=== PATIENT | male | born 1965 | race Two or more races ===

== ENCOUNTER 2020-05-29 13:28 | Inpatient (IN) | payer OTHER ==
[2020-05-29 16:36] VITALS: BMI 29.1
[2020-05-29] MEDS ORDERED: METHOCARBAMOL 500 MG TABLET PO PRN (18:04)
[2020-05-29] MEDS ORDERED: MAG HYDROX/AL HYDROX/SIMETH 30 ML UNIT-DOSE CUP PO PRN (18:04)
[2020-05-29] MEDS ORDERED: MAGNESIUM HYDROX 2400MG/30ML ORAL SUSPENSION 30 ML CUP PO PRN (18:04)
[2020-05-29] MEDS ORDERED: ONDANSETRON *ODT* 4 MG TABLET SL PRN (18:04)
[2020-05-29] MEDS ORDERED: BISMUTH SUBSALICYLATE 524 MG/30 ML UD PO PRN (18:04)
[2020-05-29] MEDS ORDERED: MAGNESIUM CITRATE 300 ML BOTTLE PO PRN (18:04)
[2020-05-29] MEDS ORDERED: MENTHOL/PHENOL 1 EACH UD MM PRN (18:04)
[2020-05-29] MEDS ORDERED: ACETAMINOPHEN 325 MG TABLET (FP) PO PRN ×2 (18:04)
[2020-05-29] MEDS ORDERED: chlordiazePOXIDE HCL 25 MG CAPSULE PO PRN (18:05)
[2020-05-29] MEDS ORDERED: chlordiazePOXIDE HCL 25 MG CAPSULE PO ONE (18:15)
[2020-05-29] MEDS: IBUPROFEN 400 MG TABLET (FP) PO PRN (19:00)
[2020-05-29] MEDS: hydrOXYzine PAMOATE 25 MG CAPSULE (FP) PO PRN (19:00)
[2020-05-29] MEDS: THIAMINE HCL 100 MG TABLET (FP) PO SCH (22:54)
[2020-05-29] MEDS: traZODone HCL 50 MG TABLET (FP) PO PRN (22:54)
[2020-05-29] MEDS: chlordiazePOXIDE HCL 25 MG CAPSULE PO SCH (22:54)
[2020-05-29] MEDS: MELATONIN 5 MG TABLETS PO SCH (22:55)
[2020-05-30] MEDS: chlordiazePOXIDE HCL 25 MG CAPSULE PO SCH ×4 (05:36→22:54)
[2020-05-30] MEDS: IBUPROFEN 400 MG TABLET (FP) PO PRN ×2 (05:36→18:44)
[2020-05-30 10:47] LABS: HEMATOCRIT 40.2 % (35.4-49); HEMOGLOBIN 13.9 GM/dL (11.7-16.9); MCH 31.9 pg (25.7-33.7); MCHC 34.5 g/dl (32.0-35.9); MEAN CELL VOLUME 92.5 fl (80-96); MEAN PLT VOLUME 9.4 fl (7.5-11.1); PLATELET COUNT 193 K/MM3 (134-434); RBC 4.34 M/mm3 (4.00-5.60); RDW 13.4 % (11.9-15.9); WHITE BLOOD COUNT 2.8 K/mm3 (4.0-10.0)
[2020-05-30] MEDS: PRENATAL VITAMINS W/ FOLIC ACID TABLET (FP) PO SCH (11:04)
[2020-05-30 11:23] LABS: POTASSIUM 3.8 mmol/L (3.5-5.1)
[2020-05-30 11:27] LABS: ALBUMIN 3.3 g/dl (3.4-5.0); BLOOD UREA NITROGEN 25.6 mg/dL (7-18)
[2020-05-30 11:29] LABS: CALCIUM 8.9 mg/dL (8.5-10.1); CREATININE 1.4 mg/dL (0.55-1.3)
[2020-05-30 11:31] LABS: BILIRUBIN,TOTAL 0.4 mg/dL (0.2-1); TOT PROT 6.3 g/dl (6.4-8.2)
[2020-05-30] MEDS: MELATONIN 5 MG TABLETS PO SCH (22:53)
[2020-05-30] MEDS: traZODone HCL 50 MG TABLET (FP) PO PRN (22:53)
[2020-05-30] MEDS: THIAMINE HCL 100 MG TABLET (FP) PO SCH (22:54)
[2020-05-31] MEDS ORDERED: chlordiazePOXIDE HCL 25 MG CAPSULE PO SCH ×2 (05:00→05:15)
[2020-05-31] MEDS ORDERED: MASKS NR ONE (06:09)
[2020-05-31] MEDS: IBUPROFEN 400 MG TABLET (FP) PO PRN ×2 (06:14→22:14)
[2020-05-31] MEDS: chlordiazePOXIDE HCL 10 MG CAPSULE PO SCH ×4 (06:16→22:17)
[2020-05-31] MEDS: PRENATAL VITAMINS W/ FOLIC ACID TABLET (FP) PO SCH (10:27)
[2020-05-31] MEDS: MELATONIN 5 MG TABLETS PO SCH (22:13)
[2020-05-31] MEDS: THIAMINE HCL 100 MG TABLET (FP) PO SCH (22:14)
[2020-05-31] MEDS: hydrOXYzine PAMOATE 25 MG CAPSULE (FP) PO PRN (22:15)
[2020-06-01] MEDS ORDERED: chlordiazePOXIDE HCL 10 MG CAPSULE PO PRN
[2020-06-01] MEDS: IBUPROFEN 400 MG TABLET (FP) PO PRN (05:44)
[2020-06-01] MEDS: chlordiazePOXIDE HCL 10 MG CAPSULE PO SCH ×2 (05:47→17:49)
[2020-06-01] MEDS: PRENATAL VITAMINS W/ FOLIC ACID TABLET (FP) PO SCH (10:23)
[2020-06-01 13:07] LABS: CALCIUM 9.3 mg/dL (8.5-10.1)
[2020-06-01 13:12] LABS: CREATININE 1.2 mg/dL (0.55-1.3)
[2020-06-01 21:42] VITALS: BP 143/99; PULSE 77; TEMP 97.7
[2020-06-02] MEDS ORDERED: chlordiazePOXIDE HCL 10 MG CAPSULE PO ONE (05:00)
== END 2020-06-01 21:56 | disposition left against medical advice (07) | DRG 770 ==
LOC: YASAS 13:28 → Y3N 16:35
PROVIDERS: ADMIT Allergy & Immunology; ATTEND Allergy & Immunology
PROC: HZ2ZZZZ Detoxification Services for Substance Abuse Treatment (ICD-10-PCS; principal; 2020-05-29)
DX: F10.230 Alcohol dependence with withdrawal, uncomplicated (principal); F14.20 Cocaine dependence, uncomplicated; F12.20 Cannabis dependence, uncomplicated; R79.89 Other specified abnormal findings of blood chemistry; Z91.018 Allergy to other foods; Z59.0 Homelessness
CPT/HCPCS: 36415; 80048; 80053; 85027; 86780; 93005; 93010; C9803; U0003

== ENCOUNTER 2020-08-22 09:26 | Inpatient (IN) | payer OTHER ==
[2020-08-22 10:10] VITALS: BMI 29.9
[2020-08-22] MEDS ORDERED: MAGNESIUM CITRATE 300 ML BOTTLE PO PRN (11:08)
[2020-08-22] MEDS ORDERED: ACETAMINOPHEN 325 MG TABLET (FP) PO PRN ×2 (11:08)
[2020-08-22] MEDS ORDERED: ONDANSETRON *ODT* 4 MG TABLET SL PRN (11:08)
[2020-08-22] MEDS ORDERED: MAG HYDROX/AL HYDROX/SIMETH 30 ML UNIT-DOSE CUP PO PRN (11:08)
[2020-08-22] MEDS ORDERED: LORazepam 1 MG TABLET PO PRN (11:08)
[2020-08-22] MEDS ORDERED: BISMUTH SUBSALICYLATE 524 MG/30 ML PO PRN (11:08)
[2020-08-22] MEDS ORDERED: MAGNESIUM HYDROX 2400MG/30ML ORAL SUSPENSION 30 ML CUP PO PRN (11:08)
[2020-08-22] MEDS: METHOCARBAMOL 500 MG TABLET PO PRN (12:48)
[2020-08-22] MEDS: IBUPROFEN 400 MG TABLET (FP) PO PRN (12:50)
[2020-08-22] MEDS ORDERED: MASKS NR ONE (12:52)
[2020-08-22] MEDS: hydrOXYzine PAMOATE 25 MG CAPSULE (FP) PO SCH ×2 (13:34→17:28)
[2020-08-22] MEDS: LORazepam 2 MG TABLET PO SCH (17:28)
[2020-08-22] MEDS: ALBUTEROL SO4 HFA INHALER IH PRN (17:28)
[2020-08-23] MEDS: MELATONIN 5 MG TABLETS PO SCH ×2 (00:02→22:09)
[2020-08-23] MEDS: THIAMINE HCL 100 MG TABLET (FP) PO SCH ×2 (00:02→22:09)
[2020-08-23] MEDS: hydrOXYzine PAMOATE 25 MG CAPSULE (FP) PO SCH ×6 (00:02→22:09)
[2020-08-23] MEDS: LORazepam 2 MG TABLET PO SCH ×5 (00:02→22:08)
[2020-08-23] MEDS: METHOCARBAMOL 500 MG TABLET PO PRN (05:37)
[2020-08-23] MEDS: MENTHOL/PHENOL 1 EACH UD MM PRN (05:38)
[2020-08-23] MEDS: PRENATAL VITAMINS W/ FOLIC ACID TABLET (FP) PO SCH (10:25)
[2020-08-23] MEDS: IBUPROFEN 400 MG TABLET (FP) PO PRN (10:27)
[2020-08-24] MEDS: hydrOXYzine PAMOATE 25 MG CAPSULE (FP) PO SCH ×5 (05:46→22:31)
[2020-08-24] MEDS: LORazepam 1 MG TABLET PO SCH ×4 (05:46→22:31)
[2020-08-24] MEDS: PRENATAL VITAMINS W/ FOLIC ACID TABLET (FP) PO SCH (10:09)
[2020-08-24] MEDS: MENTHOL/PHENOL 1 EACH UD MM PRN ×2 (10:12→18:18)
[2020-08-24 15:05] LABS: HEMATOCRIT 42.3 % (35.4-49); HEMOGLOBIN 14.4 GM/dL (11.7-16.9); MCH 31.3 pg (25.7-33.7); MCHC 34.2 g/dl (32.0-35.9); MEAN CELL VOLUME 91.6 fl (80-96); MEAN PLT VOLUME 8.8 fl (7.5-11.1); PLATELET COUNT 212 K/MM3 (134-434); RBC 4.62 M/mm3 (4.00-5.60); RDW 13.4 % (11.9-15.9); WHITE BLOOD COUNT 3.5 K/mm3 (4.0-10.0)
[2020-08-24 15:08] LABS: ALBUMIN 3.3 g/dl (3.4-5.0); BLOOD UREA NITROGEN 19.6 mg/dL (7-18); CALCIUM 9.2 mg/dL (8.5-10.1)
[2020-08-24 15:12] LABS: BILIRUBIN,TOTAL 0.3 mg/dL (0.2-1); TOT PROT 6.6 g/dl (6.4-8.2)
[2020-08-24] MEDS: MELATONIN 5 MG TABLETS PO SCH (22:31)
[2020-08-24] MEDS: THIAMINE HCL 100 MG TABLET (FP) PO SCH (22:31)
[2020-08-25] MEDS ORDERED: LORazepam 0.5 MG TABLET PO PRN
[2020-08-25] MEDS: hydrOXYzine PAMOATE 25 MG CAPSULE (FP) PO SCH ×5 (05:11→22:12)
[2020-08-25] MEDS: LORazepam 0.5 MG TABLET PO SCH ×4 (05:11→22:12)
[2020-08-25] MEDS: IBUPROFEN 400 MG TABLET (FP) PO PRN ×2 (05:13→13:18)
[2020-08-25] MEDS: ALBUTEROL SO4 HFA INHALER IH PRN (05:13)
[2020-08-25] MEDS: PRENATAL VITAMINS W/ FOLIC ACID TABLET (FP) PO SCH (10:13)
[2020-08-25] MEDS: MELATONIN 5 MG TABLETS PO SCH (22:12)
[2020-08-25] MEDS: THIAMINE HCL 100 MG TABLET (FP) PO SCH (22:12)
[2020-08-26] MEDS ORDERED: LORazepam 0.5 MG TABLET PO ONE (05:00)
[2020-08-26] MEDS: ALBUTEROL SO4 HFA INHALER IH PRN (05:39)
[2020-08-26] MEDS: hydrOXYzine PAMOATE 25 MG CAPSULE (FP) PO SCH (05:39)
[2020-08-26 09:29] VITALS: BP 145/85; PULSE 83; TEMP 98.1
== END 2020-08-26 09:40 | disposition other institution (70) | DRG 774 ==
LOC: YASAS 09:26 → Y6N 11:03
PROVIDERS: ADMIT Allergy & Immunology; ATTEND Allergy & Immunology
PROC: HZ2ZZZZ Detoxification Services for Substance Abuse Treatment (ICD-10-PCS; principal; 2020-08-22)
DX: F10.230 Alcohol dependence with withdrawal, uncomplicated (principal); F14.20 Cocaine dependence, uncomplicated; F12.20 Cannabis dependence, uncomplicated; F17.210 Nicotine dependence, cigarettes, uncomplicated; F51.05 Insomnia due to other mental disorder; J45.909 Unspecified asthma, uncomplicated; Z56.0 Unemployment, unspecified; Z59.0 Homelessness
CPT/HCPCS: 36415; 80053; 85027; 86780; C9803; U0003; U0005

== ENCOUNTER 2023-03-13 11:26 | Inpatient (IN) | payer OTHER ==
[2023-03-13 11:55] VITALS: BMI 27.5
[2023-03-13] MEDS ORDERED: BISMUTH SUBSALICYLATE 262 MG/15 ML BTL PO PRN (12:15)
[2023-03-13] MEDS ORDERED: hydrOXYzine PAMOATE 25 MG CAPSULE (FP) PO PRN (12:15)
[2023-03-13] MEDS ORDERED: LOPERAMIDE HCL 2 MG CAPSULE PO PRN (12:15)
[2023-03-13] MEDS ORDERED: IBUPROFEN 600 MG TABLET (FP) PO PRN (12:15)
[2023-03-13] MEDS ORDERED: P-EPHED 60MG/TRIPROLIDI 2.5MG TABLET PO PRN (12:15)
[2023-03-13] MEDS ORDERED: MAG HYDROX/AL HYDROX/SIMETH 30 ML UNIT-DOSE CUP PO PRN (12:15)
[2023-03-13] MEDS ORDERED: ONDANSETRON *ODT* 4 MG TABLET SL PRN (12:15)
[2023-03-13] MEDS ORDERED: POLYETHYLENE GLYCOL (HEALTHYLAX) 3350 17 GM PACKET PO PRN (12:15)
[2023-03-13] MEDS ORDERED: BENZONATATE 200 MG CAPSULE PO PRN (12:15)
[2023-03-13] MEDS ORDERED: MAGNESIUM HYDROX 2400MG/30ML ORAL SUSPENSION 30 ML CUP PO PRN (12:15)
[2023-03-13] MEDS ORDERED: DICYCLOMINE HCL 10 MG CAPSULE PO PRN (12:15)
[2023-03-13] MEDS: ALBUTEROL SO4 2.5/IPRATROPIUM 0.5 INH SOL 3 ML VIAL.NEB. NEB ONE (13:11)
[2023-03-13] MEDS: traZODone HCL 50 MG TABLET (FP) PO SCH (22:09)
[2023-03-13] MEDS: MELATONIN 5 MG TABLETS PO SCH (22:09)
[2023-03-13] MEDS: METHOCARBAMOL 500 MG TABLET PO PRN (22:09)
[2023-03-13] MEDS: THIAMINE HCL 100 MG TABLET (FP) PO SCH (22:09)
[2023-03-13] MEDS: guaiFENesin 600 MG TABLET.ER (FP) PO PRN (22:10)
[2023-03-14] MEDS: PRENATAL VITAMINS W/ FOLIC ACID TABLET (FP) PO SCH (10:13)
[2023-03-14] MEDS: ALBUTEROL SO4 HFA INHALER IH PRN (10:13)
[2023-03-14] MEDS ORDERED: chlordiazePOXIDE HCL 25 MG CAPSULE PO PRN (10:19)
[2023-03-14] MEDS ORDERED: ALBUTEROL SO4 HFA INHALER IH PRN (10:24)
[2023-03-14] MEDS: chlordiazePOXIDE HCL 25 MG CAPSULE PO SCH (10:41)
[2023-03-14 10:44] LABS: HEMATOCRIT 37.7 % (35.4-49); HEMOGLOBIN 12.5 GM/dL (11.7-16.9); MCH 30.8 pg (25.7-33.7); MCHC 33.3 g/dl (32.0-35.9); MEAN CELL VOLUME 92.6 fl (80-96); MEAN PLT VOLUME 7.8 fl (7.5-11.1); PLATELET COUNT 257 10^3/uL (134-434); RBC 4.07 M/mm3 (4.00-5.60); RDW 13.5 % (11.9-15.9); WHITE BLOOD COUNT 3.3 K/mm3 (4.0-10.0)
[2023-03-14 10:50] LABS: CHLORIDE 109 mmol/L (98-107); POTASSIUM 3.9 mmol/L (3.5-5.1); SODIUM 141 mmol/L (136-145)
[2023-03-14 10:52] LABS: ALBUMIN 3.1 g/dl (3.4-5.0); ANION GAP 4 mmol/L (4-13); BLOOD UREA NITROGEN 26.2 mg/dL (7-18); CALCIUM 8.7 mg/dL (8.5-10.1); CO2 27 mmol/L (21-32); GLUCOSE,RANDOM 84 mg/dL (74-106)
[2023-03-14 10:55] LABS: SGPT/ALT 44 U/L (13-61)
[2023-03-14 10:56] LABS: SGOT/AST 23 U/L (15-37)
[2023-03-14 10:57] LABS: BILIRUBIN,TOTAL 0.6 mg/dL (0.2-1); TOT PROT 6.2 g/dl (6.4-8.2)
[2023-03-14 10:58] LABS: ALK PHOS 92 U/L (45-117)
[2023-03-14] MEDS ORDERED: ALBUTEROL SO4 2.5/IPRATROPIUM 0.5 INH SOL 3 ML VIAL.NEB. NEB PRN (15:22)
[2023-03-14] MEDS: ACETAMINOPHEN 325 MG TABLET (FP) PO PRN (22:20)
[2023-03-14] MEDS: BENZOCAINE/MENTHOL (CHLORASEPTIC ) LOZENGE MM PRN (22:21)
[2023-03-15] MEDS: IBUPROFEN 400 MG TABLET (FP) PO PRN (22:45)
[2023-03-16] MEDS: chlordiazePOXIDE HCL 25 MG CAPSULE PO SCH (05:55)
[2023-03-16 21:04] VITALS: RESP 18
[2023-03-17] MEDS ORDERED: chlordiazePOXIDE HCL 10 MG CAPSULE PO PRN
[2023-03-17] MEDS: chlordiazePOXIDE HCL 10 MG CAPSULE PO SCH (05:10)
[2023-03-17 08:43] VITALS: BP 116/73; PULSE 79; TEMP 97.1
[2023-03-18] MEDS ORDERED: chlordiazePOXIDE HCL 10 MG CAPSULE PO SCH (05:00)
[2023-03-19] MEDS ORDERED: chlordiazePOXIDE HCL 10 MG CAPSULE PO ONE (05:00)
== END 2023-03-17 11:41 | disposition home or self-care (01) | DRG 774 ==
LOC: YASAS 11:26 → Y3N 12:27 → Y6N 03-15 13:07 → Y3N 03-16 06:15
PROVIDERS: ADMIT Allergy & Immunology; ATTEND Surgery
PROC: HZ2ZZZZ Detoxification Services for Substance Abuse Treatment (ICD-10-PCS; principal; 2023-03-13)
DX: F10.230 Alcohol dependence with withdrawal, uncomplicated (principal); F14.20 Cocaine dependence, uncomplicated; F12.20 Cannabis dependence, uncomplicated; J45.909 Unspecified asthma, uncomplicated
CPT/HCPCS: 0241U-QW; 36415; 80053; 80307; 85027; 86780; 87635; 87811; 94640

== ENCOUNTER 2023-07-09 11:30 | Inpatient (IN) | payer OTHER ==
[2023-07-09 12:09] VITALS: BMI 28.4
[2023-07-09] MEDS ORDERED: MAGNESIUM HYDROX 2400MG/30ML ORAL SUSPENSION 30 ML CUP PO PRN (15:36)
[2023-07-09] MEDS ORDERED: DICYCLOMINE HCL 10 MG CAPSULE PO PRN (15:36)
[2023-07-09] MEDS ORDERED: MAG HYDROX/AL HYDROX/SIMETH 30 ML UNIT-DOSE CUP PO PRN (15:36)
[2023-07-09] MEDS ORDERED: ACETAMINOPHEN 325 MG TABLET (FP) PO PRN (15:36)
[2023-07-09] MEDS ORDERED: NALOXONE HCL 0.4 MG/ML VIAL IM PRN (15:36)
[2023-07-09] MEDS ORDERED: guaiFENesin 600 MG TABLET.ER (FP) PO PRN (15:36)
[2023-07-09] MEDS ORDERED: BENZOCAINE/MENTHOL (CHLORASEPTIC ) LOZENGE MM PRN (15:36)
[2023-07-09] MEDS ORDERED: BENZONATATE 200 MG CAPSULE PO PRN (15:36)
[2023-07-09] MEDS ORDERED: LOPERAMIDE HCL 2 MG CAPSULE PO PRN (15:36)
[2023-07-09] MEDS ORDERED: ONDANSETRON *ODT* 4 MG TABLET SL PRN (15:36)
[2023-07-09] MEDS ORDERED: chlordiazePOXIDE HCL 25 MG CAPSULE PO PRN (15:36)
[2023-07-09] MEDS ORDERED: NALOXONE HCL (KLOXXADO) 8 MG SPRAY NS PRN (15:36)
[2023-07-09] MEDS ORDERED: BISMUTH SUBSALICYLATE 524 MG/30 ML PO PRN (15:36)
[2023-07-09] MEDS ORDERED: POLYETHYLENE GLYCOL (HEALTHYLAX) 3350 17 GM PACKET PO PRN (15:36)
[2023-07-09] MEDS ORDERED: IBUPROFEN 400 MG TABLET (FP) PO PRN (15:36)
[2023-07-09] MEDS: chlordiazePOXIDE HCL 25 MG CAPSULE PO SCH (17:30)
[2023-07-09] MEDS: MELATONIN 5 MG TABLETS PO SCH (22:55)
[2023-07-09] MEDS: THIAMINE 100 MG TABLET PO SCH (22:55)
[2023-07-09] MEDS: IBUPROFEN 600 MG TABLET (FP) PO PRN (22:56)
[2023-07-09] MEDS: METHOCARBAMOL 500 MG TABLET PO PRN (22:58)
[2023-07-10] MEDS: ALBUTEROL SO4 HFA INHALER IH PRN (05:42)
[2023-07-10] MEDS: PRENATAL VITAMINS W/ FOLIC ACID TABLET (FP) PO SCH (10:37)
[2023-07-10 11:49] LABS: HEMOGLOBIN 13.8 GM/dL (11.7-16.9); MCH 29.8 pg (25.7-33.7); MEAN CELL VOLUME 90.5 fl (80-96); PLATELET COUNT 181 10^3/uL (134-434); RBC 4.64 M/mm3 (4.00-5.60); RDW 14.1 % (11.9-15.9); WHITE BLOOD COUNT 2.3 K/mm3 (4.0-10.0)
[2023-07-10 11:52] LABS: CHLORIDE 111 mmol/L (98-107); SODIUM 143 mmol/L (136-145)
[2023-07-10 12:00] LABS: ALBUMIN 3.5 g/dl (3.4-5.0); ANION GAP 3 mmol/L (4-13); BLOOD UREA NITROGEN 37.4 mg/dL (7-18); CALCIUM 9.2 mg/dL (8.5-10.1); CO2 29 mmol/L (21-32); GLUCOSE,RANDOM 102 mg/dL (74-106)
[2023-07-10 12:02] LABS: BILIRUBIN,TOTAL 0.6 mg/dL (0.2-1)
[2023-07-10 12:03] LABS: CREATININE 1.4 mg/dL (0.55-1.3); SGOT/AST 31 U/L (15-37)
[2023-07-10 12:04] LABS: TOT PROT 6.6 g/dl (6.4-8.2)
[2023-07-10 12:06] LABS: ALK PHOS 77 U/L (45-117)
[2023-07-10 12:11] LABS: SGPT/ALT 31 U/L (13-61)
[2023-07-10] MEDS: hydrOXYzine PAMOATE 25 MG CAPSULE (FP) PO PRN (22:30)
[2023-07-11] MEDS: chlordiazePOXIDE HCL 25 MG CAPSULE PO SCH (05:45)
[2023-07-12] MEDS ORDERED: chlordiazePOXIDE HCL 10 MG CAPSULE PO PRN
[2023-07-12] MEDS: chlordiazePOXIDE HCL 10 MG CAPSULE PO SCH (05:45)
[2023-07-13] MEDS: chlordiazePOXIDE HCL 10 MG CAPSULE PO SCH (05:27)
[2023-07-13 10:18] VITALS: PULSE 80; RESP 20; TEMP 98.8
[2023-07-13 10:20] VITALS: BP 152/104
[2023-07-13] MEDS: amLODIPine BESYLATE 10 MG TABLET (FP) PO SCH (10:34)
[2023-07-14] MEDS ORDERED: chlordiazePOXIDE HCL 10 MG CAPSULE PO ONE (05:00)
== END 2023-07-13 12:52 | disposition other institution (70) | DRG 774 ==
LOC: YASAS 11:30 → Y3N 14:59
PROVIDERS: ADMIT Allergy & Immunology; ATTEND Surgery
PROC: HZ2ZZZZ Detoxification Services for Substance Abuse Treatment (ICD-10-PCS; principal; 2023-07-09)
DX: F10.230 Alcohol dependence with withdrawal, uncomplicated (principal); F14.20 Cocaine dependence, uncomplicated; F12.20 Cannabis dependence, uncomplicated; F17.210 Nicotine dependence, cigarettes, uncomplicated; F51.05 Insomnia due to other mental disorder; Z87.09 Personal history of other diseases of the respiratory system
CPT/HCPCS: 36415; 80053; 80307; 82140; 85027; 86780; 87811; 93005; 93010

== ENCOUNTER 2023-07-13 13:01 | Inpatient (IN) | payer OTHER ==
[2023-07-13] MEDS ORDERED: POLYETHYLENE GLYCOL (HEALTHYLAX) 3350 17 GM PACKET PO PRN (15:41)
[2023-07-13] MEDS ORDERED: BENZOCAINE/MENTHOL (CHLORASEPTIC ) LOZENGE MM PRN (15:41)
[2023-07-13] MEDS ORDERED: NALOXONE HCL 0.4 MG/ML VIAL IVPUSH PRN (15:41)
[2023-07-13] MEDS ORDERED: NALOXONE (NYS OPIOID OVERDOSE PROGRAM) 4 MG/0.1 ML SPRAY NS PRN (15:41)
[2023-07-13] MEDS ORDERED: BENZONATATE 200 MG CAPSULE PO PRN (15:41)
[2023-07-13] MEDS ORDERED: AMMONIUM LACTATE 12% LOTION 225 GM BOTTLE TP PRN (15:41)
[2023-07-13] MEDS ORDERED: LOPERAMIDE HCL 2 MG CAPSULE PO PRN (15:41)
[2023-07-13] MEDS ORDERED: NICOTINE POLACRILEX 4 MG LOZENGE BC PRN (15:41)
[2023-07-13] MEDS ORDERED: MAGNESIUM HYDROX 2400MG/30ML ORAL SUSPENSION 30 ML CUP PO PRN (15:41)
[2023-07-13] MEDS ORDERED: NICOTINE POLACRILEX 4 MG GUM BUC PRN (15:41)
[2023-07-13] MEDS ORDERED: guaiFENesin 600 MG TABLET.ER (FP) PO PRN (15:41)
[2023-07-13] MEDS: ALBUTEROL SO4 HFA INHALER IH PRN (19:07)
[2023-07-13] MEDS: THIAMINE 100 MG TABLET PO SCH (21:24)
[2023-07-13] MEDS: MELATONIN 5 MG TABLETS PO SCH (21:24)
[2023-07-14] MEDS: METHOCARBAMOL 500 MG TABLET PO PRN (06:51)
[2023-07-14] MEDS: PRENATAL VITAMINS W/ FOLIC ACID TABLET (FP) PO SCH (10:45)
[2023-07-14] MEDS: amLODIPine BESYLATE 10 MG TABLET (FP) PO SCH (10:45)
[2023-07-14] MEDS: NICOTINE 14 MG/24 HOURS TOPICAL PATCH TD SCH (10:45)
[2023-07-14] MEDS: MAG HYDROX/AL HYDROX/SIMETH 30 ML UNIT-DOSE CUP PO PRN (14:59)
[2023-07-14] MEDS: traZODone HCL 100 MG TABLET (FP) PO SCH (21:56)
[2023-07-14] MEDS: hydrOXYzine PAMOATE 25 MG CAPSULE (FP) PO PRN (21:56)
[2023-07-15] MEDS: ACETAMINOPHEN 325 MG TABLET (FP) PO PRN (21:30)
[2023-07-17 06:36] VITALS: RESP 18
[2023-07-18] MEDS: ALBUTEROL SO4 HFA INHALER IH PRN (09:57)
[2023-07-19 06:44] VITALS: TEMP 97.6
[2023-07-19 12:45] VITALS: BP 133/82; PULSE 88
== END 2023-07-19 11:35 | disposition home or self-care (01) | DRG 772 ==
LOC: YASAS 13:01 → Y3W 13:04 → Y5N 07-17 14:17
PROVIDERS: ADMIT Allergy & Immunology; ATTEND Psychiatry & Neurology Pain Medicine
PROC: HZ42ZZZ Group Counseling for Substance Abuse Treatment, Cognitive-Behavioral (ICD-10-PCS; principal; 2023-07-13)
DX: F10.20 Alcohol dependence, uncomplicated (principal); F14.20 Cocaine dependence, uncomplicated; F12.20 Cannabis dependence, uncomplicated; F17.210 Nicotine dependence, cigarettes, uncomplicated; F19.282 Other psychoactive substance dependence with psychoactive substance-induced sleep disorder; F19.24 Other psychoactive substance dependence with psychoactive substance-induced mood disorder; G47.00 Insomnia, unspecified; I10 Essential (primary) hypertension; Z87.09 Personal history of other diseases of the respiratory system

== ENCOUNTER 2023-10-07 09:40 | Inpatient (IN) | payer OTHER ==
[2023-10-07 10:20] VITALS: BMI 29.2
[2023-10-07] MEDS ORDERED: NALOXONE (NARCAN) HCL 4 MG/0.1 ML SPRAY NS PRN (10:53)
[2023-10-07] MEDS ORDERED: chlordiazePOXIDE HCL 25 MG CAPSULE PO PRN (10:53)
[2023-10-07] MEDS ORDERED: ONDANSETRON *ODT* 4 MG TABLET SL PRN (10:53)
[2023-10-07] MEDS ORDERED: LOPERAMIDE HCL 2 MG CAPSULE PO PRN (10:53)
[2023-10-07] MEDS ORDERED: NALOXONE HCL 0.4 MG/ML VIAL IM PRN (10:53)
[2023-10-07] MEDS ORDERED: MAGNESIUM HYDROX 2400MG/30ML ORAL SUSPENSION 30 ML CUP PO PRN (10:53)
[2023-10-07] MEDS ORDERED: BENZOCAINE/MENTHOL (CHLORASEPTIC ) LOZENGE MM PRN (10:53)
[2023-10-07] MEDS ORDERED: guaiFENesin 600 MG TABLET.ER (FP) PO PRN (10:53)
[2023-10-07] MEDS ORDERED: ACETAMINOPHEN 325 MG TABLET (FP) PO PRN (10:53)
[2023-10-07] MEDS ORDERED: BENZONATATE 200 MG CAPSULE PO PRN (10:53)
[2023-10-07] MEDS ORDERED: BISMUTH SUBSALICYLATE 524 MG/30 ML PO PRN (10:53)
[2023-10-07] MEDS ORDERED: MAG HYDROX/AL HYDROX/SIMETH 30 ML UNIT-DOSE CUP PO PRN (10:53)
[2023-10-07] MEDS ORDERED: POLYETHYLENE GLYCOL (HEALTHYLAX) 3350 17 GM PACKET PO PRN (10:53)
[2023-10-07] MEDS ORDERED: DICYCLOMINE HCL 10 MG CAPSULE PO PRN (10:53)
[2023-10-07] MEDS: ALBUTEROL SO4 HFA INHALER IH PRN (16:09)
[2023-10-07] MEDS: chlordiazePOXIDE HCL 25 MG CAPSULE PO SCH (17:27)
[2023-10-07] MEDS: IBUPROFEN 400 MG TABLET (FP) PO PRN (17:29)
[2023-10-07] MEDS: traZODone HCL 50 MG TABLET (FP) PO SCH (22:41)
[2023-10-07] MEDS: THIAMINE 100 MG TABLET PO SCH (22:41)
[2023-10-07] MEDS: LIDOCAINE PATCH REMOVAL MC SCH (22:43)
[2023-10-07] MEDS: MELATONIN 5 MG TABLETS PO SCH (22:43)
[2023-10-08] MEDS: IBUPROFEN 600 MG TABLET (FP) PO PRN (05:27)
[2023-10-08 09:47] LABS: CHLORIDE 109 mmol/L (98-107); SODIUM 140 mmol/L (136-145)
[2023-10-08 09:50] LABS: HEMATOCRIT 39.4 % (35.4-49); HEMOGLOBIN 13.3 GM/dL (11.7-16.9); MCH 30.8 pg (25.7-33.7); MCHC 33.7 g/dl (32.0-35.9); MEAN CELL VOLUME 91.6 fl (80-96); PLATELET COUNT 179 10^3/uL (134-434); RDW 13.7 % (11.9-15.9)
[2023-10-08 09:51] LABS: CALCIUM 8.9 mg/dL (8.5-10.1)
[2023-10-08 09:52] LABS: ALBUMIN 3.1 g/dl (3.4-5.0); ANION GAP 3 mmol/L (4-13); BLOOD UREA NITROGEN 18.8 mg/dL (7-18); CO2 27 mmol/L (21-32); GLUCOSE,RANDOM 93 mg/dL (74-106)
[2023-10-08 09:55] LABS: CREATININE 1.2 mg/dL (0.55-1.3); SGOT/AST 24 U/L (15-37); SGPT/ALT 27 U/L (13-61); WHITE BLOOD COUNT 1.9 K/mm3 (4.0-10.0)
[2023-10-08 09:57] LABS: BILIRUBIN,TOTAL 0.4 mg/dL (0.2-1); TOT PROT 5.7 g/dl (6.4-8.2)
[2023-10-08 09:58] LABS: ALK PHOS 78 U/L (45-117)
[2023-10-08] MEDS: amLODIPine BESYLATE 10 MG TABLET (FP) PO SCH (10:14)
[2023-10-08] MEDS: PRENATAL VITAMINS W/ FOLIC ACID TABLET (FP) PO SCH (10:14)
[2023-10-09] MEDS: chlordiazePOXIDE HCL 25 MG CAPSULE PO SCH (05:13)
[2023-10-09 11:58] LABS: HEMATOCRIT 37.5 % (35.4-49); HEMOGLOBIN 12.8 GM/dL (11.7-16.9); MCH 30.9 pg (25.7-33.7); MCHC 34.1 g/dl (32.0-35.9); MEAN CELL VOLUME 90.8 fl (80-96); MEAN PLT VOLUME 9.1 fl (7.5-11.1); PLATELET COUNT 164 10^3/uL (134-434); RBC 4.13 M/mm3 (4.00-5.60); RDW 13.9 % (11.9-15.9); WHITE BLOOD COUNT 2.6 K/mm3 (4.0-10.0)
[2023-10-10] MEDS ORDERED: chlordiazePOXIDE HCL 10 MG CAPSULE PO PRN
[2023-10-10] MEDS: chlordiazePOXIDE HCL 10 MG CAPSULE PO SCH (05:28)
[2023-10-11] MEDS: chlordiazePOXIDE HCL 10 MG CAPSULE PO SCH (05:30)
[2023-10-11] MEDS: LIDOCAINE 5% TOPICAL PATCH TP PRN (11:44)
[2023-10-12] MEDS: chlordiazePOXIDE HCL 10 MG CAPSULE PO ONE (05:43)
[2023-10-12 08:57] VITALS: BP 117/74; PULSE 78; RESP 16; TEMP 96.9
== END 2023-10-12 09:30 | disposition home or self-care (01) | DRG 774 ==
LOC: YASAS 09:40 → Y6N 10:59
PROVIDERS: ADMIT Allergy & Immunology; ATTEND Surgery
PROC: HZ2ZZZZ Detoxification Services for Substance Abuse Treatment (ICD-10-PCS; principal; 2023-10-07)
DX: F10.230 Alcohol dependence with withdrawal, uncomplicated (principal); F14.20 Cocaine dependence, uncomplicated; F12.20 Cannabis dependence, uncomplicated; F19.282 Other psychoactive substance dependence with psychoactive substance-induced sleep disorder; D72.819 Decreased white blood cell count, unspecified; I10 Essential (primary) hypertension; J45.20 Mild intermittent asthma, uncomplicated; E86.0 Dehydration; M54.50 Low back pain, unspecified; G89.29 Other chronic pain; Z87.891 Personal history of nicotine dependence
CPT/HCPCS: 36415; 80053; 80305; 80307; 85027; 86780; 93005; 93010

== ENCOUNTER 2024-02-24 13:03 | Inpatient (IN) | payer OTHER ==
[2024-02-24 14:27] VITALS: BMI 24.3
[2024-02-24] MEDS ORDERED: MAGNESIUM HYDROX 2400MG/30ML ORAL SUSPENSION 30 ML CUP PO PRN (14:40)
[2024-02-24] MEDS ORDERED: hydrOXYzine PAMOATE 25 MG CAPSULE (FP) PO PRN (14:40)
[2024-02-24] MEDS ORDERED: BENZONATATE 200 MG CAPSULE PO PRN (14:40)
[2024-02-24] MEDS ORDERED: POLYETHYLENE GLYCOL (HEALTHYLAX) 3350 17 GM PACKET PO PRN (14:40)
[2024-02-24] MEDS ORDERED: LOPERAMIDE HCL 2 MG CAPSULE PO PRN (14:40)
[2024-02-24] MEDS ORDERED: guaiFENesin 600 MG TABLET.ER (FP) PO PRN (14:40)
[2024-02-24] MEDS ORDERED: ALBUTEROL SO4 HFA INHALER IH ONE (14:58)
[2024-02-24] MEDS: ALBUTEROL SO4 HFA INHALER IH PRN (14:59)
[2024-02-24] MEDS: THIAMINE 100 MG TABLET PO SCH (21:23)
[2024-02-24] MEDS: MELATONIN 5 MG TABLETS PO SCH (21:23)
[2024-02-24] MEDS ORDERED: traZODone HCL 50 MG TABLET (FP) PO SCH (22:00)
[2024-02-25 09:05] LABS: CHLORIDE 114 mmol/L (98-107); POTASSIUM 3.5 mmol/L (3.5-5.1); SODIUM 145 mmol/L (136-145)
[2024-02-25] MEDS: PRENATAL VITAMINS W/ FOLIC ACID TABLET (FP) PO SCH (09:05)
[2024-02-25 09:10] LABS: HEMATOCRIT 36.5 % (35.4-49); HEMOGLOBIN 12.4 GM/dL (11.7-16.9); MCH 31.2 pg (25.7-33.7); MCHC 33.9 g/dl (32.0-35.9); MEAN CELL VOLUME 92.1 fl (80-96); MEAN PLT VOLUME 9.6 fl (7.5-11.1); PLATELET COUNT 208 10^3/uL (134-434); RBC 3.97 M/mm3 (4.00-5.60); RDW 13.9 % (11.9-15.9); WHITE BLOOD COUNT 3.9 K/mm3 (4.0-10.0)
[2024-02-25 09:11] LABS: ANION GAP 5 mmol/L (4-13); BLOOD UREA NITROGEN 14.2 mg/dL (7-18); CALCIUM 8.7 mg/dL (8.5-10.1); CO2 27 mmol/L (21-32); GLUCOSE,RANDOM 98 mg/dL (74-106)
[2024-02-25 09:13] LABS: CREATININE 1.1 mg/dL (0.55-1.3)
[2024-02-25 09:14] LABS: SGOT/AST 34 U/L (15-37)
[2024-02-25 09:15] LABS: BILIRUBIN,TOTAL 0.1 mg/dL (0.2-1); TOT PROT 5.7 g/dl (6.4-8.2)
[2024-02-25 09:16] LABS: ALK PHOS 103 U/L (45-117)
[2024-02-25 09:20] LABS: SGPT/ALT 42 U/L (13-61)
[2024-02-26] MEDS: ACETAMINOPHEN 325 MG TABLET (FP) PO PRN (08:59)
[2024-02-26] MEDS: traZODone HCL 50 MG TABLET (FP) PO SCH (21:50)
[2024-02-27] MEDS: IBUPROFEN 600 MG TABLET (FP) PO PRN (10:06)
[2024-02-27 11:41] LABS: PH,URINE 6.5 (5.0-8.0); URINE APPEARANCE CLEAR; URINE BILIRUBIN NEGATIVE (NEGATIVE); URINE COLOR YELLOW; URINE GLUCOSE (UA) NEGATIVE (NEGATIVE); URINE KETONE NEGATIVE (NEGATIVE); URINE LEUK ESTERASE NEGATIVE (NEGATIVE); URINE NITRITE NEGATIVE (NEGATIVE); URINE PROTEIN NEGATIVE (NEGATIVE); URINE UROBILINOGEN 0.2 mg/dL (0.2-1.0)
[2024-02-27] MEDS: traZODone HCL 50 MG TABLET (FP) PO SCH (21:08)
[2024-03-03] MEDS: IBUPROFEN 400 MG TABLET (FP) PO PRN (18:00)
[2024-03-05] MEDS: BENZOCAINE/MENTHOL (CHLORASEPTIC ) LOZENGE MM PRN (21:43)
[2024-03-07] MEDS ORDERED: SIMETHICONE 80 MG TAB.CHEW (FP) PO PRN (16:06)
[2024-03-09] MEDS: TETRAHYDROZOLINE HCL EYE DROPS OD PRN (04:45)
[2024-03-09] MEDS: MAG HYDROX/AL HYDROX/SIMETH 30 ML UNIT-DOSE CUP PO PRN (06:19)
[2024-03-18 06:54] VITALS: BP 130/85; PULSE 80; RESP 16; TEMP 97.8
[2024-03-18] MEDS: NALOXONE (NYS OPIOID OVERDOSE PROGRAM) 4 MG/0.1 ML SPRAY NS SCH (12:11)
== END 2024-03-18 12:45 | disposition home or self-care (01) | DRG 772 ==
LOC: YASAS 13:03 → Y3NR 15:12 → Y5N 02-26 18:07
PROVIDERS: ADMIT Neuromusculoskeletal Medicine & OMM; ATTEND Family Medicine Addiction Medicine
PROC: HZ42ZZZ Group Counseling for Substance Abuse Treatment, Cognitive-Behavioral (ICD-10-PCS; principal; 2024-02-24)
DX: F14.20 Cocaine dependence, uncomplicated (principal); F10.20 Alcohol dependence, uncomplicated; F12.20 Cannabis dependence, uncomplicated; F32.A Depression, unspecified; G47.00 Insomnia, unspecified; J45.909 Unspecified asthma, uncomplicated; M54.50 Low back pain, unspecified; G89.29 Other chronic pain; Z59.01 Sheltered homelessness
CPT/HCPCS: 36415; 80053; 80305; 80307; 81003; 85027; 86780; 87811

== ENCOUNTER 2024-04-29 18:46 | Inpatient (IN) | payer OTHER ==
[2024-04-29 19:21] VITALS: BMI 24.3
[2024-04-29] MEDS ORDERED: DICYCLOMINE HCL 10 MG CAPSULE PO PRN (20:51)
[2024-04-29] MEDS ORDERED: MAG HYDROX/AL HYDROX/SIMETH 30 ML UNIT-DOSE CUP PO PRN (20:51)
[2024-04-29] MEDS ORDERED: BISMUTH SUBSALICYLATE 524 MG/30 ML PO PRN (20:51)
[2024-04-29] MEDS ORDERED: NICOTINE POLACRILEX 2 MG LOZENGE BC PRN (20:51)
[2024-04-29] MEDS ORDERED: NICOTINE POLACRILEX 2 MG GUM BUC PRN (20:51)
[2024-04-29] MEDS ORDERED: BENZOCAINE/MENTHOL (CHLORASEPTIC ) LOZENGE MM PRN (20:51)
[2024-04-29] MEDS ORDERED: POLYETHYLENE GLYCOL (HEALTHYLAX) 3350 17 GM PACKET PO PRN (20:51)
[2024-04-29] MEDS ORDERED: NALOXONE (NARCAN) HCL 4 MG/0.1 ML SPRAY NS PRN (20:51)
[2024-04-29] MEDS ORDERED: MAGNESIUM HYDROX 2400MG/30ML ORAL SUSPENSION 30 ML CUP PO PRN (20:51)
[2024-04-29] MEDS ORDERED: ACETAMINOPHEN 325 MG TABLET (FP) PO PRN (20:51)
[2024-04-29] MEDS ORDERED: IBUPROFEN 400 MG TABLET (FP) PO PRN (20:51)
[2024-04-29] MEDS ORDERED: LOPERAMIDE HCL 2 MG CAPSULE PO PRN (20:51)
[2024-04-29] MEDS ORDERED: ONDANSETRON *ODT* 4 MG TABLET SL PRN (20:51)
[2024-04-29] MEDS ORDERED: diazePAM 5 MG TABLET ONE (23:43)
[2024-04-29] MEDS ORDERED: ALBUTEROL SO4 HFA INHALER IH ONE (23:43)
[2024-04-29] MEDS ORDERED: MELATONIN 5 MG TABLETS ONE (23:43)
[2024-04-29] MEDS: ALBUTEROL SO4 HFA INHALER IH PRN (23:50)
[2024-04-29] MEDS: diazePAM 5 MG TABLET PO SCH (23:51)
[2024-04-29] MEDS: THIAMINE 100 MG TABLET PO SCH (23:51)
[2024-04-29] MEDS: MELATONIN 5 MG TABLETS PO SCH (23:52)
[2024-04-30] MEDS: PRENATAL VITAMINS W/ FOLIC ACID TABLET (FP) PO SCH (10:14)
[2024-04-30] MEDS: NALTREXONE HCL 50 MG TABLET PO SCH (10:15)
[2024-04-30 12:11] LABS: CHLORIDE 109 mmol/L (98-107); HEMATOCRIT 36.9 % (35.4-49); HEMOGLOBIN 12.6 GM/dL (11.7-16.9); MCH 30.6 pg (25.7-33.7); MCHC 34.3 g/dl (32.0-35.9); MEAN CELL VOLUME 89.2 fl (80-96); MEAN PLT VOLUME 8.1 fl (7.5-11.1); PLATELET COUNT 264 10^3/uL (134-434); POTASSIUM 3.9 mmol/L (3.5-5.1); RBC 4.14 M/mm3 (4.00-5.60); RDW 13.1 % (11.9-15.9); SODIUM 141 mmol/L (136-145); WHITE BLOOD COUNT 3.2 K/mm3 (4.0-10.0)
[2024-04-30 12:18] LABS: ALBUMIN 2.8 g/dl (3.4-5.0); ANION GAP 4 mmol/L (4-13); BLOOD UREA NITROGEN 8.1 mg/dL (7-18); CALCIUM 8.7 mg/dL (8.5-10.1); CO2 28 mmol/L (21-32)
[2024-04-30 12:19] LABS: GLUCOSE,RANDOM 86 mg/dL (74-106)
[2024-04-30 12:21] LABS: CREATININE 0.9 mg/dL (0.55-1.3); SGOT/AST 45 U/L (15-37); SGPT/ALT 41 U/L (13-61)
[2024-04-30 12:23] LABS: BILIRUBIN,TOTAL 0.2 mg/dL (0.2-1); TOT PROT 5.7 g/dl (6.4-8.2)
[2024-04-30 12:24] LABS: ALK PHOS 89 U/L (45-117)
[2024-04-30] MEDS: METHOCARBAMOL 500 MG TABLET PO PRN (22:57)
[2024-04-30] MEDS: IBUPROFEN 600 MG TABLET (FP) PO PRN (22:57)
[2024-04-30] MEDS: guaiFENesin 600 MG TABLET.ER (FP) PO PRN (22:57)
[2024-04-30] MEDS: BENZONATATE 200 MG CAPSULE PO PRN (23:11)
[2024-05-01] MEDS: diazePAM 5 MG TABLET PO SCH (07:00)
[2024-05-01] MEDS: P-EPHED 60MG/TRIPROLIDI 2.5MG TABLET PO PRN (17:37)
[2024-05-01] MEDS: diazePAM 5 MG TABLET PO PRN (17:38)
[2024-05-01] MEDS: hydrOXYzine PAMOATE 25 MG CAPSULE (FP) PO PRN (17:40)
[2024-05-02] MEDS: diazePAM 5 MG TABLET PO SCH (06:21)
[2024-05-03] MEDS: diazePAM 5 MG TABLET PO ONE (06:04)
[2024-05-03 09:58] VITALS: BP 130/69; PULSE 85; RESP 18; TEMP 97.7
== END 2024-05-03 10:15 | disposition home or self-care (01) | DRG 774 ==
LOC: YASAS 18:46 → Y6N 23:29
PROVIDERS: ADMIT Allergy & Immunology; ATTEND Allergy & Immunology
PROC: HZ2ZZZZ Detoxification Services for Substance Abuse Treatment (ICD-10-PCS; principal; 2024-04-29)
DX: F10.230 Alcohol dependence with withdrawal, uncomplicated (principal); F14.20 Cocaine dependence, uncomplicated; F12.20 Cannabis dependence, uncomplicated; F17.210 Nicotine dependence, cigarettes, uncomplicated; F51.05 Insomnia due to other mental disorder; G47.00 Insomnia, unspecified; I10 Essential (primary) hypertension; J45.20 Mild intermittent asthma, uncomplicated; M54.50 Low back pain, unspecified; G89.29 Other chronic pain; Z20.828 Contact with and (suspected) exposure to other viral communicable diseases; Z56.0 Unemployment, unspecified; Z59.01 Sheltered homelessness
CPT/HCPCS: 0241U-QW; 36415; 80053; 80305; 80307; 85027; 86780

== ENCOUNTER 2024-06-25 13:54 | Inpatient (IN) | payer OTHER ==
[2024-06-25 15:47] VITALS: BMI 25.5
[2024-06-25] MEDS ORDERED: BENZONATATE 200 MG CAPSULE PO PRN (15:58)
[2024-06-25] MEDS ORDERED: BISMUTH SUBSALICYLATE 524 MG/30 ML PO PRN (15:58)
[2024-06-25] MEDS ORDERED: IBUPROFEN 400 MG TABLET (FP) PO PRN (15:58)
[2024-06-25] MEDS ORDERED: BENZOCAINE/MENTHOL (CHLORASEPTIC ) LOZENGE MM PRN (15:58)
[2024-06-25] MEDS ORDERED: NICOTINE POLACRILEX 2 MG GUM BUC PRN (15:58)
[2024-06-25] MEDS ORDERED: ACETAMINOPHEN 325 MG TABLET (FP) PO PRN (15:58)
[2024-06-25] MEDS ORDERED: NICOTINE POLACRILEX 2 MG LOZENGE BC PRN (15:58)
[2024-06-25] MEDS ORDERED: LOPERAMIDE HCL 2 MG CAPSULE PO PRN (15:58)
[2024-06-25] MEDS ORDERED: MAGNESIUM HYDROX 2400MG/30ML ORAL SUSPENSION 30 ML CUP PO PRN (15:58)
[2024-06-25] MEDS ORDERED: ONDANSETRON *ODT* 4 MG TABLET SL PRN (15:58)
[2024-06-25] MEDS ORDERED: DOCUSATE SODIUM 100 MG CAPSULE (FP) PO PRN (15:58)
[2024-06-25] MEDS ORDERED: NALOXONE (NARCAN) HCL 4 MG/0.1 ML SPRAY NS PRN (15:58)
[2024-06-25] MEDS ORDERED: POLYETHYLENE GLYCOL (HEALTHYLAX) 3350 17 GM PACKET PO PRN (15:58)
[2024-06-25] MEDS ORDERED: DICYCLOMINE HCL 10 MG CAPSULE PO PRN (15:58)
[2024-06-25] MEDS ORDERED: MAG HYDROX/AL HYDROX/SIMETH 30 ML UNIT-DOSE CUP PO PRN (15:58)
[2024-06-25] MEDS: guaiFENesin 600 MG TABLET.ER (FP) PO PRN (18:44)
[2024-06-25] MEDS: ALBUTEROL SO4 HFA INHALER IH PRN (18:44)
[2024-06-25] MEDS: MELATONIN 5 MG TABLETS PO SCH (22:04)
[2024-06-25] MEDS: hydrOXYzine PAMOATE 25 MG CAPSULE (FP) PO PRN (22:05)
[2024-06-25] MEDS: THIAMINE 100 MG TABLET PO SCH (22:05)
[2024-06-25] MEDS: METHOCARBAMOL 500 MG TABLET PO PRN (22:05)
[2024-06-25] MEDS: IBUPROFEN 600 MG TABLET (FP) PO PRN (22:06)
[2024-06-26] MEDS ORDERED: diazePAM 5 MG TABLET PO PRN (09:08)
[2024-06-26] MEDS: diazePAM 5 MG TABLET PO SCH (10:22)
[2024-06-26] MEDS: PRENATAL VITAMINS W/ FOLIC ACID TABLET (FP) PO SCH (10:22)
[2024-06-26] MEDS: ALBUTEROL SO4 HFA INHALER IH SCH (10:36)
[2024-06-26 12:10] LABS: HEMOGLOBIN 12.8 g/dL (13.7-17.5); MEAN CELL VOLUME 93.2 fl (79.0-92.2); MEAN PLT VOLUME 11.2 fl (9.4-12.4); PLATELET COUNT 159 x10^3/uL (163-337); RDW 12.8 % (12.2-16.1)
[2024-06-26 12:14] LABS: CHLORIDE 108 mmol/L (98-107); POTASSIUM 3.3 mmol/L (3.5-5.1); SODIUM 142 mmol/L (136-145)
[2024-06-26 12:24] LABS: ALBUMIN 3.2 g/dl (3.4-5.0)
[2024-06-26 12:25] LABS: ANION GAP 5 mmol/L (4-13); BLOOD UREA NITROGEN 19.8 mg/dL (7-18); CO2 29 mmol/L (21-32); GLUCOSE,RANDOM 93 mg/dL (74-106)
[2024-06-26 12:28] LABS: SGOT/AST 18 U/L (15-37); SGPT/ALT 18 U/L (13-61)
[2024-06-26 12:29] LABS: BILIRUBIN,TOTAL 0.5 mg/dL (0.2-1); TOT PROT 6.1 g/dl (6.4-8.2)
[2024-06-26 12:31] LABS: ALK PHOS 91 U/L (45-117)
[2024-06-26] MEDS: POTASSIUM CHLORIDE ORAL LIQUID 20 MEQ/15 ML PO ONE (14:15)
[2024-06-26] MEDS: traZODone HCL 50 MG TABLET (FP) PO SCH (22:28)
[2024-06-27] MEDS: P-EPHED 60MG/TRIPROLIDI 2.5MG TABLET PO PRN (17:29)
[2024-06-28] MEDS: diazePAM 5 MG TABLET PO SCH (05:22)
[2024-06-28 16:43] VITALS: BP 158/108; PULSE 94; RESP 18; TEMP 97.8
[2024-06-29] MEDS ORDERED: diazePAM 5 MG TABLET PO SCH (06:00)
[2024-06-30] MEDS ORDERED: diazePAM 5 MG TABLET PO ONE (06:00)
== END 2024-06-28 17:15 | disposition home or self-care (01) | DRG 774 ==
LOC: YASAS 13:54 → Y3N 17:45
PROVIDERS: ADMIT Allergy & Immunology; ATTEND Allergy & Immunology
PROC: HZ2ZZZZ Detoxification Services for Substance Abuse Treatment (ICD-10-PCS; principal; 2024-06-25)
DX: F10.230 Alcohol dependence with withdrawal, uncomplicated (principal); F14.20 Cocaine dependence, uncomplicated; F12.20 Cannabis dependence, uncomplicated; F17.210 Nicotine dependence, cigarettes, uncomplicated; E87.6 Hypokalemia; G47.00 Insomnia, unspecified; J45.909 Unspecified asthma, uncomplicated; M54.50 Low back pain, unspecified; G89.29 Other chronic pain; Z59.01 Sheltered homelessness
CPT/HCPCS: 36415; 80053; 80305; 80307; 84132; 85027; 86780

== ENCOUNTER 2024-08-13 09:26 | Inpatient (IN) | payer OTHER ==
[2024-08-13 09:50] VITALS: BMI 24.0
[2024-08-13] MEDS ORDERED: NALOXONE (NARCAN) HCL 4 MG/0.1 ML SPRAY NS PRN (10:29)
[2024-08-13] MEDS ORDERED: BENZONATATE 200 MG CAPSULE PO PRN (10:29)
[2024-08-13] MEDS ORDERED: BISMUTH SUBSALICYLATE 262 MG/15 ML BTL PO PRN (10:29)
[2024-08-13] MEDS ORDERED: NICOTINE POLACRILEX 2 MG LOZENGE BC PRN (10:29)
[2024-08-13] MEDS ORDERED: POLYETHYLENE GLYCOL (HEALTHYLAX) 3350 17 GM PACKET PO PRN (10:29)
[2024-08-13] MEDS ORDERED: NICOTINE POLACRILEX 2 MG GUM BUC PRN (10:29)
[2024-08-13] MEDS ORDERED: ACETAMINOPHEN 325 MG TABLET (FP) PO PRN (10:29)
[2024-08-13] MEDS ORDERED: DICYCLOMINE HCL 10 MG CAPSULE PO PRN (10:29)
[2024-08-13] MEDS ORDERED: LOPERAMIDE HCL 2 MG CAPSULE PO PRN (10:29)
[2024-08-13] MEDS ORDERED: ONDANSETRON *ODT* 4 MG TABLET SL PRN (10:29)
[2024-08-13] MEDS ORDERED: guaiFENesin 600 MG TABLET.ER (FP) PO PRN (10:29)
[2024-08-13] MEDS ORDERED: MAG HYDROX/AL HYDROX/SIMETH 30 ML UNIT-DOSE CUP PO PRN (10:29)
[2024-08-13] MEDS ORDERED: diazePAM 5 MG TABLET PO PRN (10:29)
[2024-08-13] MEDS ORDERED: BENZOCAINE/MENTHOL (CHLORASEPTIC ) LOZENGE MM PRN (10:29)
[2024-08-13] MEDS ORDERED: IBUPROFEN 400 MG TABLET (FP) PO PRN (10:29)
[2024-08-13] MEDS ORDERED: MAGNESIUM HYDROX 2400MG/30ML ORAL SUSPENSION 30 ML CUP PO PRN (10:29)
[2024-08-13] MEDS ORDERED: PRENATAL VITAMINS W/ FOLIC ACID TABLET (FP) PO ONE (11:11)
[2024-08-13] MEDS: PRENATAL VITAMINS W/ FOLIC ACID TABLET (FP) PO SCH (11:14)
[2024-08-13] MEDS: diazePAM 5 MG TABLET PO SCH (17:14)
[2024-08-13] MEDS: ALBUTEROL SO4 HFA INHALER IH PRN (17:14)
[2024-08-13] MEDS: IBUPROFEN 600 MG TABLET (FP) PO PRN (17:47)
[2024-08-13] MEDS: THIAMINE 100 MG TABLET PO SCH (22:34)
[2024-08-13] MEDS: traZODone HCL 100 MG TABLET (FP) PO SCH (22:34)
[2024-08-13] MEDS: MELATONIN 5 MG TABLETS PO SCH (22:34)
[2024-08-14 11:31] LABS: HEMOGLOBIN 13.8 g/dL (13.7-17.5); MCHC 32.9 g/dl (32.3-36.5); MEAN CELL VOLUME 92.7 fl (79.0-92.2); MEAN PLT VOLUME 11.4 fl (9.4-12.4); PLATELET COUNT 243 x10^3/uL (163-337); RDW 12.8 % (12.2-16.1)
[2024-08-14 11:43] LABS: POTASSIUM 3.8 mmol/L (3.5-5.1)
[2024-08-14 11:52] LABS: ALBUMIN 3.4 g/dl (3.4-5.0); BLOOD UREA NITROGEN 24.4 mg/dL (7-18)
[2024-08-14 11:54] LABS: BILIRUBIN,TOTAL 0.4 mg/dL (0.2-1); CALCIUM 9.7 mg/dL (8.5-10.1); TOT PROT 6.7 g/dl (6.4-8.2)
[2024-08-14 11:55] LABS: CREATININE 1.2 mg/dL (0.55-1.3)
[2024-08-15] MEDS: diazePAM 5 MG TABLET PO SCH (05:57)
[2024-08-16] MEDS: diazePAM 5 MG TABLET PO SCH (05:29)
[2024-08-16] MEDS: hydrOXYzine PAMOATE 25 MG CAPSULE (FP) PO PRN (09:34)
[2024-08-16] MEDS: METHOCARBAMOL 500 MG TABLET PO PRN (09:34)
[2024-08-17] MEDS: diazePAM 5 MG TABLET PO ONE (05:34)
[2024-08-17 09:01] VITALS: BP 141/86; PULSE 79; RESP 18; TEMP 97.6
== END 2024-08-17 09:49 | disposition home or self-care (01) | DRG 774 ==
LOC: YASAS 09:26 → Y6N 10:57
PROVIDERS: ADMIT Allergy & Immunology; ATTEND Allergy & Immunology
PROC: HZ2ZZZZ Detoxification Services for Substance Abuse Treatment (ICD-10-PCS; principal; 2024-08-13)
DX: F10.230 Alcohol dependence with withdrawal, uncomplicated (principal); F14.20 Cocaine dependence, uncomplicated; F12.20 Cannabis dependence, uncomplicated; F17.210 Nicotine dependence, cigarettes, uncomplicated; G47.00 Insomnia, unspecified; I10 Essential (primary) hypertension; J45.20 Mild intermittent asthma, uncomplicated; M54.50 Low back pain, unspecified; G89.29 Other chronic pain; Z59.01 Sheltered homelessness
CPT/HCPCS: 36415; 80053; 80305; 80307; 85027; 86780; 93005; 93010

== ENCOUNTER 2024-10-22 13:30 | Inpatient (IN) | payer OTHER ==
[2024-10-22 14:18] VITALS: BMI 22.9
[2024-10-22] MEDS ORDERED: DICYCLOMINE HCL 10 MG CAPSULE PO PRN (14:42)
[2024-10-22] MEDS ORDERED: BENZOCAINE/MENTHOL (CHLORASEPTIC ) LOZENGE MM PRN (14:42)
[2024-10-22] MEDS ORDERED: NALOXONE (NARCAN) HCL 4 MG/0.1 ML SPRAY NS PRN (14:42)
[2024-10-22] MEDS ORDERED: ONDANSETRON *ODT* 4 MG TABLET SL PRN (14:42)
[2024-10-22] MEDS ORDERED: BENZONATATE 200 MG CAPSULE PO PRN (14:42)
[2024-10-22] MEDS ORDERED: BISMUTH SUBSALICYLATE 524 MG/30 ML PO PRN (14:42)
[2024-10-22] MEDS ORDERED: MAGNESIUM HYDROX 2400MG/30ML ORAL SUSPENSION 30 ML CUP PO PRN (14:42)
[2024-10-22] MEDS ORDERED: ACETAMINOPHEN 325 MG TABLET (FP) PO PRN (14:42)
[2024-10-22] MEDS ORDERED: LOPERAMIDE HCL 2 MG CAPSULE PO PRN (14:42)
[2024-10-22] MEDS ORDERED: POLYETHYLENE GLYCOL (HEALTHYLAX) 3350 17 GM PACKET PO PRN (14:42)
[2024-10-22] MEDS ORDERED: MAG HYDROX/AL HYDROX/SIMETH 30 ML UNIT-DOSE CUP PO PRN (14:42)
[2024-10-22] MEDS ORDERED: ALBUTEROL SO4 HFA INHALER IH ONE (16:28)
[2024-10-22] MEDS: ALBUTEROL SO4 HFA INHALER IH SCH (16:32)
[2024-10-22] MEDS: guaiFENesin 600 MG TABLET.ER (FP) PO PRN (20:49)
[2024-10-22] MEDS: IBUPROFEN 600 MG TABLET (FP) PO PRN (20:51)
[2024-10-22] MEDS: MELATONIN 5 MG TABLETS PO SCH (22:32)
[2024-10-22] MEDS: hydrOXYzine PAMOATE 25 MG CAPSULE (FP) PO PRN (22:32)
[2024-10-22] MEDS: METHOCARBAMOL 500 MG TABLET PO PRN (22:32)
[2024-10-22] MEDS: THIAMINE 100 MG TABLET PO SCH (22:33)
[2024-10-22] MEDS: traZODone HCL 100 MG TABLET (FP) PO SCH (22:38)
[2024-10-23] MEDS: IBUPROFEN 400 MG TABLET (FP) PO PRN (06:15)
[2024-10-23] MEDS: PRENATAL VITAMINS W/ FOLIC ACID TABLET (FP) PO SCH (10:16)
[2024-10-23 10:36] LABS: MCHC 32.8 g/dl (32.3-36.5); MEAN CELL VOLUME 92.6 fl (79.0-92.2); MEAN PLT VOLUME 11.7 fl (9.4-12.4); RDW 12.7 % (12.2-16.1)
[2024-10-23 10:45] LABS: CO2 32.0 mmol/L (21-32); GLUCOSE,RANDOM 113.0 mg/dL (74-106)
[2024-10-23 10:48] LABS: SGOT/AST 27.0 U/L (15-37); SGPT/ALT 31.0 U/L (13-61)
[2024-10-23 10:49] LABS: CREATININE 1.0 mg/dL (0.55-1.3)
[2024-10-23 10:50] LABS: TOT PROT 7.1 g/dl (6.4-8.2)
[2024-10-23 10:51] LABS: ALK PHOS 104.0 U/L (45-117)
[2024-10-26] MEDS ORDERED: ALBUTEROL SO4 2.5/IPRATROPIUM 0.5 INH SOL 3 ML VIAL.NEB. NEB ONE (18:09)
[2024-10-26] MEDS ORDERED: ALBUTEROL SO4 2.5/IPRATROPIUM 0.5 INH SOL 3 ML VIAL.NEB. NEB PRN (18:21)
[2024-10-26] MEDS: predniSONE 1 MG TABLET (FP) PO SCH (19:22)
[2024-10-26] MEDS: AMOX TR/POT CLAV 875MG/125MG TABLETS (FP) PO SCH (19:23)
[2024-10-26 21:29] VITALS: RESP 18
[2024-10-26] MEDS ORDERED: AMOXICILLIN 500 MG CAPSULE (FP) PO SCH (22:00)
[2024-10-27 01:51] LABS: HIV INTERPRETATION NEGATIVE (NEGATIVE)
[2024-10-27] MEDS: predniSONE 10 MG TABLET (UD) PO SCH (09:13)
[2024-10-27 09:22] VITALS: BP 117/82; PULSE 82; TEMP 98.2
== END 2024-10-27 10:15 | disposition home or self-care (01) | DRG 774 ==
LOC: YASAS 13:30 → Y6N 16:26
PROVIDERS: ADMIT Family Medicine; ATTEND Allergy & Immunology
PROC: HZ2ZZZZ Detoxification Services for Substance Abuse Treatment (ICD-10-PCS; principal; 2024-10-22)
DX: F10.230 Alcohol dependence with withdrawal, uncomplicated (principal); F14.20 Cocaine dependence, uncomplicated; F12.20 Cannabis dependence, uncomplicated; M54.50 Low back pain, unspecified; I10 Essential (primary) hypertension; J45.20 Mild intermittent asthma, uncomplicated; G47.00 Insomnia, unspecified; F17.210 Nicotine dependence, cigarettes, uncomplicated; G89.29 Other chronic pain
CPT/HCPCS: 36415; 80053; 80305; 80307; 85027; 86780; 87389; 87637-QW; 93005; 93010